=== PATIENT | female | born 1995 | race Two or more races ===

== ENCOUNTER 2017-06-01 00:41 | Emergency (ER) | payer SELFPAY ==
[~2017-06-01] VITALS: Ht 152.4 cm; Wt 63.0 kg
[2017-06-01] MEDS ORDERED: ACETAMINOPHEN 500MG TABLET PO ONE (06:45)
[2017-06-01 07:34] VITALS: BP 100/49
== END 2017-06-01 08:02 | disposition home or self-care (01) ==
LOC: ER 00:41
DX: T23.151A Burn of first degree of right palm, initial encounter (principal); X12.XXXA Contact with other hot fluids, initial encounter; Y93.89 Activity, other specified; Y92.89 Other specified places as the place of occurrence of the external cause; Y99.8 Other external cause status
CPT/HCPCS: 99282; Z7610

== ENCOUNTER 2024-02-15 20:19 | Emergency (ER) | payer MEDICAID ==
[~2024-02-15] VITALS: Ht 149.9 cm; Wt 83.0 kg
[2024-02-15 21:01] VITALS: BP 116/70; PULSE 100; RESP 16; TEMP 98.5; O2SAT 96
[2024-02-15 23:05] LABS: BASOPHILS % 0.6 % (0.0-2.0); EOSINOPHILS % 6.7 % (0.0-5.0); HEMATOCRIT. 36.1 % (36.0-48.0); HEMOGLOBIN. 11.9 g/dL (12.0-16.0); LYMPHOCYTES % 28.8 % (20.0-50.0); MEAN CORPUSCULAR HEMOGLOBIN 27.9 pg (28.0-32.0); MEAN CORPUSCULAR VOLUME 84.6 fL (81.0-99.0); MEAN PLATELET VOLUME 8.7 fl (7.4-10.4); MONOCYTES % 6.8 % (2.0-8.0); NEUTROPHILS % 57.1 % (40.0-76.0); PLATELET 370 x1000/uL (130-400); RED BLOOD CELL COUNT 4.27 mill/uL (4.2-5.4); WHITE BLOOD COUNT 11.2 x1000/uL (4.5-11.0)
[2024-02-15 23:16] LABS: CHLORIDE 104 mEq/L (98-107); POTASSIUM 3.6 mEq/L (3.5-5.1); SODIUM 137 mEq/L (136-145)
[2024-02-15 23:17] LABS: CALCIUM 9.4 mg/dL (8.7-10.4); CARBON DIOXIDE 26 mEq/L (21-32)
[2024-02-15 23:22] LABS: CREATININE 0.7 mg/dL (0.6-1.0); GLUCOSE 103 mg/dL (70-105); UREA NITROGEN BLOOD 9 mg/dL (9-23)
[2024-02-16] MEDS ORDERED: LOPE2CAP MT (02:06)
== END 2024-02-16 02:52 | disposition home or self-care (01) ==
LOC: ER 20:19
DX: R19.7 Diarrhea, unspecified (principal); Z00.00 Encounter for general adult medical examination without abnormal findings
CPT/HCPCS: 36415; 80048; 85025; 99283